=== PATIENT | female | born 2000 | race Asian ===

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

== ENCOUNTER → 2023-10-04 | Outpatient (CLI) | payer OTHER | LOC: COL.CARD 11:42 | DX: R53.83 Other fatigue (principal); R06.83 Snoring ==